=== PATIENT | female | born 1955 | race Caucasian/White ===

== ENCOUNTER 2020-03-20 01:33 | Observation (INO) ==
[2020-03-20] MEDS ORDERED: Famotidine 20 MG/2 ML VIAL IVP ONE (01:47)
[2020-03-20] MEDS ORDERED: methylPREDNISolone 125 MG/2 ML VIAL IVP ONE (01:47)
[2020-03-20] MEDS ORDERED: EPINEPHrine 1 MG/ML VIAL IM ONE (01:53)
[2020-03-20 02:12] LABS: Basophils % 0.5 %; Eosinophils # 0.2 K/mcL (0.0-0.6); Eosinophils % 2.9 %; Hemoglobin 12.4 g/dL (11.5-15.4); Immature Granulocytes % 1.9 % (0-4); Lymphocytes # 1.7 K/mcL (0.6-4.6); Lymphocytes % 29.8 %; Mean Corpuscular HGB Conc 33.5 g/dL (31.6-35.5); Mean Corpuscular Hemoglobin 28.4 pg (28.0-33.3); Mean Corpuscular Volume 84.7 fL (83.0-100.0); Mean Platelet Volume 9.2 fL (9.4-12.4); Monocytes # 0.7 K/mcL (0.0-1.3); Monocytes % 12.1 %; Neutrophils # 3.1 K/mcL (1.6-8.9); Platelet Count 335 K/mcL (140-400); Red Blood Count 4.37 M/mcL (3.82-4.97); Red Cell Distribution Width 12.5 % (11.5-14.5); Segmented Neutrophils % 52.8 %; White Blood Count 5.8 K/mcL (4.3-11.1)
[2020-03-20 02:29] LABS: BUN/Creatinine Ratio 16 (6-26); Blood Urea Nitrogen 13 mg/dL (8-23); C-Reactive Protein 11 mg/L (Less than 10); Carbon Dioxide 28 mEq/L (23-29); Chloride 104 mEq/L (98-107); Glucose 124 mg/dL (70-105); Osmolality,Calculated 292 (280-300); Potassium 3.5 mEq/L (3.5-5.1); Sodium 140 mEq/L (136-145); eGFR For African Americans > 60 (> 60); eGFR For Non-African Americans > 60 (> 60)
[2020-03-20 03:08] LABS: Prothrombin Time 11.9 Seconds (9.4-12.1)
[2020-03-20] MEDS ORDERED: Ondansetron 4 MG/2 ML VIAL IVP PRN (04:15)
[2020-03-20] MEDS ORDERED: Naloxone 0.4 MG/ML INJ IVP PRN (04:15)
[2020-03-20] MEDS: Famotidine 20 MG/2 ML VIAL IVP SCH ×2 (07:49→18:59)
[2020-03-20] MEDS ORDERED: Acetaminophen 325 MG TABLET PO PRN (15:35)
[2020-03-20] MEDS ORDERED: SUMAtriptan succinate 50 MG TABLET PO PRN (15:35)
[2020-03-20] MEDS ORDERED: Clotrimazole 1% CRM 15 GM TUBE TP PRN (15:35)
[2020-03-20] MEDS ORDERED: INSULIN DEGLUDEC SQ SCH (18:00)
[2020-03-20] MEDS ORDERED: LIRAGLUTIDE SQ SCH (18:00)
[2020-03-20] MEDS ORDERED: D5% in Water 1,000 ML IVC PRN (19:33)
[2020-03-20] MEDS ORDERED: *HR* Dextrose 50 % in Water (Vial) 50 ML VIAL IVP PRN (19:33)
[2020-03-20] MEDS ORDERED: Dextrose Gel 15 GM/37.5 ML TUBE PO PRN ×2 (19:33)
[2020-03-20] MEDS ORDERED: Fenofibrate 54 MG TABLET PO SCH (21:00)
[2020-03-20] MEDS ORDERED: Acetaminophen IV 1,000 MG/100 ML INFUS..BTL IVPB ONE (23:35)
[2020-03-21 04:22] LABS: Basophils % 0.3 %; Eosinophils # 0.1 K/mcL (0.0-0.6); Eosinophils % 0.6 %; Hematocrit 36.1 % (35.3-44.9); Immature Granulocytes % 1.2 % (0-4); Lymphocytes # 1.6 K/mcL (0.6-4.6); Lymphocytes % 18.5 %; Mean Corpuscular HGB Conc 33.2 g/dL (31.6-35.5); Mean Corpuscular Hemoglobin 27.9 pg (28.0-33.3); Mean Platelet Volume 9.2 fL (9.4-12.4); Monocytes # 0.8 K/mcL (0.0-1.3); Monocytes % 9.1 %; Neutrophils # 6.1 K/mcL (1.6-8.9); Platelet Count 319 K/mcL (140-400); Red Cell Distribution Width 12.7 % (11.5-14.5); Segmented Neutrophils % 70.3 %; White Blood Count 8.6 K/mcL (4.3-11.1)
[2020-03-21 04:44] LABS: BUN/Creatinine Ratio 18 (6-26); Blood Urea Nitrogen 15 mg/dL (8-23); Calcium 9.2 mg/dL (8.6-10.3); Carbon Dioxide 27 mEq/L (23-29); Chloride 104 mEq/L (98-107); Glucose 119 mg/dL (70-105); Osmolality,Calculated 290 (280-300); Potassium 3.3 mEq/L (3.5-5.1); Sodium 139 mEq/L (136-145); eGFR For African Americans > 60 (> 60); eGFR For Non-African Americans > 60 (> 60)
[2020-03-21] MEDS: Famotidine 20 MG/2 ML VIAL IVP SCH (05:42)
[2020-03-21 07:16] VITALS: BP 152/77
[2020-03-21] MEDS ORDERED: Loratadine 10 MG TABLET PO SCH (09:00)
[2020-03-21] MEDS ORDERED: Aspirin Enteric Coated 81 MG Tablet PO SCH (09:00)
[2020-03-21] MEDS ORDERED: predniSONE 20 MG TABLET PO SCH (09:00)
[2020-03-21] MEDS ORDERED: Nystatin POWDER 30 GM BOTTLE TP SCH (09:00)
[2020-03-21] MEDS ORDERED: BuPROPion XL (24 HR) 150 MG TABLET PO SCH (09:00)
[2020-03-21] MEDS ORDERED: Vitamin E 200 UNIT (90MG) CAPSULE PO SCH (09:00)
[2020-03-21] MEDS ORDERED: Triamcinolone Acet 0.1% CRM 15 GM TUBE TP PRN (10:30)
== END 2020-03-21 10:42 | disposition home or self-care (01) ==
LOC: 2NNU 01:33 → EMEROOARM 01:33 → SUATTDRO 03:36 → 2NNU 04:15 → 2ANU 17:10
PROVIDERS: ADMIT Family Medicine; ATTEND Internal Medicine